=== PATIENT | female | born 1965 | race Caucasian/White ===

== ENCOUNTER → 2019-07-06 | Day surgery (SDC) | payer BC, OTHER ==
[~2019-07-06] VITALS: Ht 160 cm; Wt 71.2 kg
[~2019-07-06] MED LIST: LISINOPRIL2.5 MG PO; NAPROXEN SODIU500 MG PO; NEXIUM40 M2 PO; SALINE MIST44 ML NS; TIZANIDINE HCL2 M1 PO; TROKENDI XR50 MG PO; TYLENOL325 M1 PO
[2019-07-06 11:08] VITALS: BP 108/73
[2019-07-06 12:52] LABS: ABSOLUTE NEUTROPHILS 7.7 thou/uL (1.4-8.2); EOSINOPHILS 0.5 % (0.0-3.0); HEMATOCRIT 41.7 % (37.0-47.0); HEMOGLOBIN 13.4 gm/dL (12.0-15.0); LYMPHOCYTES 30.4 % (24.0-44.0); MCH 28.9 pg (26.0-34.0); MCHC 32.1 g/dL (28.0-37.0); MCV 90.1 fL (80.0-100.0); MONOCYTES 5.2 % (1.0-8.0); PLATELET COUNT 368 thou/uL (150-400); POLYS 62.9 % (36.0-66.0); RBC 4.63 mil/uL (4.20-5.00); RDW 14.2 % (10.5-14.5); WBC 12.3 thou/uL (4.0-11.0)
[2019-07-06 13:02] LABS: CALCIUM 9.8 mg/dL (8.5-10.1); CREATININE 0.8 mg/dL (0.6-1.0); POTASSIUM 4.4 mmol/L (3.5-5.1)
[2019-07-06 13:03] LABS: PROTIME 10.7 Seconds (9.3-11.4)
[2019-07-06 13:09] LABS: ALBUMIN 3.9 g/dL (3.4-5.0); TOTAL BILIRUBIN 0.6 mg/dL (<0.1-1.0); TOTAL PROTEIN 7.2 g/dL (6.4-8.2)
[2019-07-06 16:52] VITALS: BP 120/72
--- NOTE | 2019-07-12 10:29 | O ---
[facility] [place] [address] OPERATIVE REPORT Name: HERMINIO SCHULZ Room #: [facility] M..#: [id number] Admission: 07/06/19 Attend Phys: Tom Nur MD Discharge: Date of : 61 Report #: [id number] THIS REPORT FOR: //name// CC: Dennis Almazan DATE OF SERVICE: 07/06/2019 PREOPERATIVE DIAGNOSIS: Epistaxis. POSTOPERATIVE DIAGNOSIS: Epistaxis. OPERATIVE PROCEDURE: Endoscopic control of epistaxis with general endotracheal. DESCRIPTION OF PROCEDURE: The patient was taken to the operating room and placed in supine position. General anesthesia was induced by endotracheal intubation. Once adequate general anesthesia was obtained, local anesthesia was induced by submucoperiosteal injection of 1% lidocaine with 1:100,000 epinephrine and topical application of cocaine solution. The patient was then draped in a sterile manner. The nasal endoscope was used to visualize the left nasal cavity. Blood clots were removed from the nasopharynx, but there was no active bleeding. I then removed blood clots from the right side of the nose all the way back into the nasopharynx and there seemed to be bleeding coming from the posterior aspect of the inferior turbinate and the middle meatus. I used the Otis elevator to push the inferior turbinate laterally and then pushed the middle turbinate medially to expose the middle meatus. There was a large opening into the maxillary sinus. I was able to suction clots from the maxillary sinus. There was active bleeding from an arterial vessel posteriorly. Suction cautery was used to cauterize this blood vessel and there was a good control of the bleeding. I passed a nasogastric tube into the stomach and emptied about 250 mL dark brown fluid. I placed FloSeal into the middle meatus to help with hemostasis. The patient tolerated the procedure well. She was then awoken and taken to the recovery room in stable condition for postoperative monitoring. <ELECTRONICALLY SIGNED> By: Elton Almazan MD 07/12/19 1029 [id number] Elton Almazan MD /nt
--- NOTE | 2019-07-12 10:29 | H ---
[facility] [place] [address] HISTORY AND PHYSICAL Name: HERMINIO SCHULZ Room #: [facility] M.R.#: [id number] Admission: 07/06/19 Attend Phys: Tom Nur MD Discharge: Date of : 61 Report #: [id number] THIS REPORT FOR: //name// CC: Vinny Junior DATE OF SERVICE: 07/06/2019 HISTORY OF PRESENT ILLNESS: The patient started having bleeding from her nose early this morning. She had it packed at a local [facility] and then came to [facility] because of continued bleeding. She had bilateral nasal packs in place. She thinks that the bleeding started on the left side. She had a similar episode in October and had her nose packed. PAST MEDICAL HISTORY: Otherwise, significant for high blood pressure and headaches. MEDICATIONS: Include lisinopril and tizanidine. ALLERGIES: She has no known drug allergies. PHYSICAL EXAMINATION: Bilateral packing was removed. She did not have bleeding from the left side of her nose. The right side of her nose had an active bleeding and she had bleeding posteriorly as well. A balloon pack was placed and it was determined to proceed to the operating room for control of epistaxis. IMPRESSION: Epistaxis. PLAN: To operating room for an endoscopic control of epistaxis. <ELECTRONICALLY SIGNED> By: Elton Almazan MD 07/12/19 1029 1542 Oracio Almazan MD /erwin
== END | disposition home or self-care (01) ==
LOC: ER 11:07 → OR 12:38 → ER 15:20 → TBA 15:20
PROVIDERS: Emergency Medicine
DX: R04.0 Epistaxis (principal); I10 Essential (primary) hypertension; K21.9 Gastro-esophageal reflux disease without esophagitis; Z98.890 Other specified postprocedural states; Z90.710 Acquired absence of both cervix and uterus; Z79.899 Other long term (current) drug therapy; Z98.51 Tubal ligation status
CPT/HCPCS: 50010; 50101; 50386; 51751; 62110; 62900; 70005